=== PATIENT | female | born 1995 | race Caucasian/White ===

== ENCOUNTER 2017-03-01 21:33 | Emergency (ER) | payer MEDICAID ==
--- NOTE | 2017-03-02 00:39 | ER Document Report ---
ED General - General Mode of Arrival: Ambulatory Information source: Patient TRAVEL OUTSIDE OF THE [place] IN LAST 30 DAYS: No - HPI Onset: Other - Pelvic pain for 6 weeks, sore throat 3 days Onset/Duration: Persistent Quality of pain: Achy Pain Level: 4 Associated symptoms: Productive cough, Sore throat, Other - Pelvic pain. denies : Chest pain, Chills, Fever, Nausea, Vomiting Exacerbated by: Denies Relieved by: Denies Similar symptoms previously: No Recently seen / treated by doctor: No <GUILLAUME LOVE - Last Filed: 03/02/17 01:59> <MARK REED - Last Filed: 03/02/17 06:23> - General Chief Complaint: Abdominal Pain Stated Complaint: COLD SYMPTOMS Time Seen by Provider: 03/02/17 00:27 Notes: Patient presents complaining of sore throat for the past 3 days with productive cough. Patient denies any fever. Patient is also concerned about possible problems with her IUD. Patient states that she had her IUD placed about 4 months ago. Patient states her last menstrual period was in December of this year. Patient reports pelvic pain for the past 6 weeks. Patient does report some mild discharge but nothing out of the normal. (GUILLAUME LOVE) - Related Data Allergies/Adverse Reactions: No Known Allergies Allergy (Verified 06/25/15 00:29) Past Medical History - General Information source: Patient - Social History Smoking Status: Current Every Day Smoker Smoking Education Provided: Yes Frequency of alcohol use: Occasional Drug Abuse: None Occupation: [employer] Lives with: Family Family History: Reviewed & Not Pertinent - Medical History Medical History: Negative Surgical Hx: Negative - Immunizations Immunizations up to date: Yes Hx Diphtheria, Pertussis, Tetanus Vaccination: Yes <GUILLAUME LOVE - Last Filed: 03/02/17 01:59> Review of Systems - Review of Systems Constitutional: No symptoms reported. denies: Fever EENT: Nose congestion, Throat pain Cardiovascular: Chest pain - Coughing Respiratory: Cough. denies: Short of breath Gastrointestinal: Abdominal pain. denies: Vomiting Genitourinary: No symptoms reported. denies: Dysuria, Flank pain Female Genitourinary: Vaginal discharge. denies: , Vaginal bleeding Musculoskeletal: No symptoms reported. denies: Back pain Skin: No symptoms reported Hematologic/Lymphatic: No symptoms reported Neurological/Psychological: No symptoms reported <GUILLAUME LOVE - Last Filed: 03/02/17 01:59> Physical Exam - General General appearance: Appears well, Alert In distress: None - HEENT Head: Normocephalic, Atraumatic Eyes: Normal Conjunctiva: Normal Ears: Normal External canal: Normal Nasal: Swelling, Clear rhinorrhea Mouth/Lips: Normal Pharynx: Erythema Neck: Normal, Supple. No: Lymphadenopathy - Respiratory Respiratory status: No respiratory distress Chest status: Nontender Breath sounds: Nonproductive cough, Wheezing - faint Chest palpation: Normal - Cardiovascular Rhythm: Regular Heart sounds: S1 appreciated, S2 appreciated Murmur: No - Abdominal Inspection: Normal Distension: No distension Bowel sounds: Normal Tenderness: Tender - lower pelvic Organomegaly: No organomegaly - Genitourinary External exam: Normal Speculum exam: Vaginal discharge, Other - Wires of IUD unable to be visualized Vaginal bleeding: None Bimanuel exam: Adnexal tenderness - Minimal left adnexal tenderness - Back Back: Normal, Nontender. No: CVA tenderness - Extremities General upper extremity: Normal inspection, Normal ROM General lower extremity: Normal inspection, Normal ROM - Neurological Neuro grossly intact: Yes Cognition: Normal Cameron Coma Scale Eye Opening: Spontaneous Cameron Coma Scale Verbal: Oriented Cameron Coma Scale Motor: Obeys Commands Petros Coma Scale Total: 15 - Psychological Associated symptoms: Normal affect, Normal mood - Skin Skin Temperature: Warm Skin Moisture: Dry Skin Color: Normal <GUILLAUME LOVE - Last Filed: 03/02/17 01:59> - Vital signs Vitals: Temp Pulse Resp BP Pulse Ox 98.6 F 94 19 133/73 H 100 03/01/17 22:30 03/01/17 22:30 03/01/17 22:30 03/01/17 22:30 03/01/17 22:30 Course - Laboratory Result Diagrams: 03/02/17 00:55 03/02/17 00:55 <GUILLAUME LOVE - Last Filed: 03/02/17 01:59> - Laboratory Result Diagrams: 03/02/17 00:55 03/02/17 00:55 <MARK REED - Last Filed: 03/02/17 06:23> - Re-evaluation Re-evalutation: 03/02/17 01:59 Patient advised of positive test. Ultrasound ordered. Bedside report and handoff given to Mark BOYD (GUILLAUME LOVE) 03/02/17 Patient sleeping comfortably, easily aroused, no distress. Vital signs unremarkable. HCG is very elevated. Ultrasound shows living IUP although yolk sac is abnormal and heart rate is elevated. Questionable IUD in place. Previously unable to visualize the strings tonight on pelvic examination performed by Nelson JUAREZ. Discussed with patient, decision was made to perform a x-ray to confirm IUD placement. Workup shows yeast, otherwise unremarkable in regards to pelvic examination, patient was treated here. Pelvic x-ray shows IUD in place. Called Dr. Lambert, [facility] on-call, he states that if strings can be visualized to try to pull out the IUD, since strings were not visualized patient is to follow- up in the office. I discussed this with patient and in detail. They state they agree with this plan, they state that they will call and follow-up closely, they are already established with the clinic. Discussed all details of findings and possibilities, answered questions to the best my ability, discussed return precautions in detail, patient states understanding and agreement. (MARK REED) - Vital Signs Vital signs: Temp Pulse Resp BP Pulse Ox 98.6 F 94 19 133/73 H 100 03/01/17 22:30 03/01/17 22:30 03/01/17 22:30 03/01/17 22:30 03/01/17 22:30 - Laboratory Laboratory results interpreted by me: 03/02/17 03/02/17 03/02/17 00:45 00:55 00:55 Hgb 11.8 L Hct 33.6 L Carbon Dioxide 21 L Creatinine 0.46 L Beta HCG, Quant 903900.00 H Urine Protein 30 H Urine Urobilinogen 2.0 H Ur Leukocyte Esterase TRACE H Urine Ascorbic Acid 40 H Urine HCG, Qual POSITIVE H Discharge <GUILLAUME LOVE - Last Filed: 03/02/17 01:59> <MARK REED - Last Filed: 03/02/17 06:23> - Discharge Clinical Impression: Abdominal pain Qualifiers: Abdominal location: generalized Qualified Code(s): R10.84 - Generalized abdominal pain Upper respiratory infection Qualifiers: URI type: unspecified URI Qualified Code(s): J06.9 - Acute upper respiratory infection, unspecified Condition: Stable Disposition: HOME, SELF-CARE Additional Instructions: You have a developing along with the IUD in the uterus. There are some concerning abnormalities on the ultrasound, this will need close follow- up. Please call the [facility] clinic this morning to arrange for close follow-up for additional management. Return for any concerning or worsening symptoms including return or worsening pain, heavy bleeding, or any other concerning symptoms. Referrals: [facility] [Provider Group] - Follow up tomorrow
[2017-03-02 01:20] LABS: BILIRUBIN,URINE NEGATIVE (NEGATIVE); GLUCOSE, URINE NEGATIVE (NEGATIVE); KETONES,URINE NEGATIVE (NEGATIVE); LEUKOCYTE ESTERASE,URINE TRACE (NEGATIVE); NITRITE,URINE NEGATIVE (NEGATIVE); PROTEIN,URINE 30 mg/dL (NEGATIVE); URINE SPECIFIC GRAVITY 1.035
[2017-03-02 01:22] LABS: APPEARANCE,URINE HAZY
[2017-03-02] MEDS ORDERED: NORMAL SALINE 1000 ML 1,000 ML IV ONE (01:31)
[2017-03-02 01:58] LABS: ABSOLUTE EOSINOPHILS # (AUTO) 0.3 10^3/uL (0.0-0.6); ABSOLUTE LYMPHOCYTES (AUTO) 1.4 10^3/uL (0.5-4.7); ABSOLUTE MONOCYTES (AUTO) 0.8 10^3/uL (0.1-1.4); ABSOLUTE NEUT (AUTO) 6.5 10^3/uL (1.7-8.2); BASOPHILS % (AUTO) 0.3 % (0-2); EOSINOPHILS % (AUTO) 3.7 % (0-6); HEMATOCRIT 33.6 % (36.0-47.0); HEMOGLOBIN 11.8 g/dL (12.0-15.5); HGB HCT DIFFERENCE 1.8; LYMPHOCYTES % (AUTO) 15.3 % (13-45); MEAN CORPUSCULAR HEMOGLOBIN 29.1 pg (27.0-33.4); MEAN CORPUSCULAR VOLUME 83 fl (80-97); MONOCYTES % (AUTO) 8.5 % (3-13); RED BLOOD COUNT 4.04 10^6/uL (3.72-5.28); RED CELL DISTRIBUTION WIDTH 13.6 % (11.5-14.0); SEGMENTED NEUTROPHILS % (AUTO) 72.2 % (42-78)
[2017-03-02 02:40] LABS: CHLAM PCR NOT DETECTED (NOT DETECT)
[2017-03-02 02:56] LABS: ALANINE AMINOTRANSFERASE 22 U/L (9-52); ALBUMIN 4.1 g/dL (3.5-5.0); ALKALINE PHOSPHATASE 67 U/L (38-126); ANION GAP 17 (5-19); ASPARTATE AMINO TRANSFERASE 15 U/L (14-36); BILIRUBIN,DIRECT 0.2 mg/dL (0.0-0.4); BILIRUBIN,TOTAL 0.4 mg/dL (0.2-1.3); BLOOD UREA NITROGEN 8 mg/dL (7-20); CALCIUM 8.8 mg/dL (8.4-10.2); CARBON DIOXIDE 21 mmol/L (22-30); CHLORIDE 103 mmol/L (98-107); CREATININE RESULT 0.46 mg/dL (0.52-1.25); GLUCOSE 77 mg/dL (75-110); POTASSIUM 3.7 mmol/L (3.6-5.0); SODIUM 140.9 mmol/L (137-145); TOTAL PROTEIN 6.6 g/dL (6.3-8.2)
--- NOTE | 2017-03-02 03:10 | RADIOLOGY REPORT (SQ) ---
EXAM DESCRIPTION: CHEST PA/LAT CLINICAL HISTORY: cough COMPARISON: None. FINDINGS: Frontal and lateral views of the chest. The cardiomediastinal silhouette has normal size and contour. No consolidation, pneumothorax, or pleural effusion. No displaced rib fractures identified. Upper abdominal soft tissues are unremarkable. IMPRESSION: 1. No acute pulmonary process identified.
--- NOTE | 2017-03-02 04:37 | RADIOLOGY REPORT (SQ) ---
EXAM DESCRIPTION: U/S OB TRANSVAGINAL W/O DOP CLINICAL HISTORY: 21 years Female, pelvic pain. Left adnexal pain. Reported history of IUD. COMPARISON: None. TECHNIQUE: Complete transvaginal first trimester obstetrical ultrasound. FINDINGS: The uterus measures 10.4 x 8.5 x 9.2 cm. No myometrial abnormalities. No free pelvic fluid. Within the uterus there is a single identified. The crown-rump length measures 2.9 cm compatible with an estimated gestational age of 9 weeks, 5 days. Small subchorionic hemorrhage. The gestational sac is otherwise unremarkable. Yolk sac identified measuring 7 mm. heart rate of 189 bpm. There is a curvilinear hyperechoic structure adjacent to the yolk sac in the chorion of indeterminate etiology of indeterminate etiology. The right ovary measures 2.1 x 3.7 x 2.8 cm. The left ovary measures 2.2 x 1.7 x 1.5 cm. Color and spectral Doppler images demonstrate flow within the ovaries bilaterally. IMPRESSION: 1. Single live intrauterine with estimated gestational age of 9 weeks, 5 days and a heart rate of 183 bpm. 2. The yolk sac is enlarged measuring 7 mm. This a poor prognostic sign. Continued close sonographic follow-up recommended. 3. There is a curvilinear hyperechoic structure in the chorion adjacent to the yolk sac of indeterminate etiology. A retained IUD cannot be excluded. Pelvic x-ray may yield visualization of a IUD however this would require radiation to the fetus.
--- NOTE | 2017-03-02 05:40 | RADIOLOGY REPORT (SQ) ---
EXAM DESCRIPTION: PELVIS AP CLINICAL HISTORY: IUD in uterus COMPARISON: None. FINDINGS: Single view of the pelvis. IUD identified in the pelvis. No acute osseous abnormalities. Pelvic soft tissues otherwise unremarkable. IMPRESSION: IUD noted in the pelvis. This raises the concern for an intrauterine IUD with a concurrent intrauterine based on previous pelvic ultrasound.
[2017-03-02] MEDS ORDERED: FLUCONAZOLE 100 MG TABLET PO ONE (06:09)
[2017-03-02 07:05] VITALS: BP 134/74
== END 2017-03-02 07:05 | disposition home or self-care (01) ==
LOC: ER 21:33
DX: J06.9 Acute upper respiratory infection, unspecified (principal); R10.84 Generalized abdominal pain; R10.2 Pelvic and perineal pain; F17.210 Nicotine dependence, cigarettes, uncomplicated; Z32.01 Encounter for pregnancy test, result positive; Z97.5 Presence of (intrauterine) contraceptive device
CPT/HCPCS: 99284; 96360; 36415; 87070; 87086; 87210; 87880; 84702; 85025; 81025; 80053; 81001; 87491; 87591; 71020; 72170; 76817; J7030; J3490